=== PATIENT | female | born 1950 | race Caucasian/White ===

== ENCOUNTER 2018-02-22 14:33 | Outpatient (CLI) | payer MEDICARE, BC | END 2018-02-22 14:34 | disposition home or self-care (01) | LOC: BICMAMMO 14:33 | PROVIDERS: ATTEND Family Medicine | DX: Z12.31 Encounter for screening mammogram for malignant neoplasm of breast (principal); R92.1 Mammographic calcification found on diagnostic imaging of breast | CPT/HCPCS: 77063; 77067 ==

== ENCOUNTER 2018-08-23 15:20 | Outpatient (CLI) | payer MEDICARE, BC ==
--- NOTE | 2018-08-23 15:58 | ULT ---
US Renal Bilateral STANDARD: 08/23/2018 12:00 AM CLINICAL HISTORY: Abnormality seen in the left kidney on prior examination in 2016.. STUDY: Renal ultrasound COMPARISON: MRI of the abdomen 06/16/2015 FINDINGS: Right kidney: Echogenicity: Normal. Masses/cysts: None. Hydronephrosis: None. Calcifications: None. Length: 10.0 cm Left kidney: Echogenicity: Normal. Masses/cysts: 2.4 cm cyst Hydronephrosis: None. Calcifications: None. Length: 11.3 cm Limited visualization of the urinary bladder is unremarkable. The bladder is predominantly decompress ed. IMPRESSION: Left renal cyst
== END 2018-08-23 15:21 | disposition home or self-care (01) ==
LOC: BICULT 15:20
PROVIDERS: ATTEND Family Medicine
DX: N28.89 Other specified disorders of kidney and ureter (principal); N28.1 Cyst of kidney, acquired
CPT/HCPCS: 76770

== ENCOUNTER 2019-03-05 15:09 | Outpatient (CLI) | payer MEDICARE, BC ==
--- NOTE | 2019-03-05 15:45 | MMO ---
Bilateral MAMMO Bilat Screen [facility]. CLINICAL HISTORY: Patient is 68 years old and is seen for screening. The patient has no family history of breast cancer. The patient has no personal history of cancer. VIEWS: The views performed were: bilateral craniocaudal with tomosynthesis and bilateral mediolateral oblique with tomosynthesis. FILMS COMPARED: The present examination has been compared to prior imaging studies performed at [facility] on 01/13/2016, 02/21/2017 and 02/22/2018, and at [facility] on 08/20/2012. This study has been interpreted with the assistance of computer-aided detection. MAMMOGRAM FINDINGS: There are scattered fibroglandular densities. There are stable benign appearing calcifications seen in both breasts. There are no suspicious masses, suspicious calcifications, or new areas of architectural distortion. IMPRESSION: THERE IS NO MAMMOGRAPHIC EVIDENCE OF MALIGNANCY. A ROUTINE FOLLOW-UP MAMMOGRAM IN 1 YEAR IS RECOMMENDED. THE RESULTS OF THIS EXAM WERE SENT TO THE PATIENT. ACR BI-RADS Category 2 - Benign finding MAMMOGRAPHY NOTE: 1. A negative mammogram report should not delay a biopsy if a dominant of clinically suspicious mass is present. 2. Approximately 10% to 15% of breast cancers are not detected by mammography. 3. Adenosis and dense breasts may obscure an underlying neoplasm. Reported by: DA UREÑA MD Electonically Signed: [id number]
== END 2019-03-05 15:10 | disposition home or self-care (01) ==
LOC: BICMAMMO 15:09
PROVIDERS: ATTEND Family Medicine
DX: Z12.31 Encounter for screening mammogram for malignant neoplasm of breast (principal)
CPT/HCPCS: 77063; 77067

== ENCOUNTER 2020-03-25 13:42 | Outpatient (CLI) | payer MEDICARE, BC ==
--- NOTE | 2020-03-25 15:00 | MMO ---
Bilateral MAMMO Bilat Screen [facility]. CLINICAL HISTORY: Patient is 69 years old and is seen for screening. The patient has no family history of breast cancer. The patient has no personal history of cancer. VIEWS: The views performed were: bilateral craniocaudal with tomosynthesis and bilateral mediolateral oblique with tomosynthesis. FILMS COMPARED: The present examination has been compared to prior imaging studies performed at [facility] on 01/13/2016, 02/21/2017, 02/22/2018 and 03/05/2019. This study has been interpreted with the assistance of computer-aided detection. MAMMOGRAM FINDINGS: There are scattered fibroglandular densities. Benign calcifications are noted bilaterally. There are no suspicious masses, suspicious calcifications, or new areas of architectural distortion. IMPRESSION: THERE IS NO MAMMOGRAPHIC EVIDENCE OF MALIGNANCY. A ROUTINE FOLLOW-UP MAMMOGRAM IN 1 YEAR IS RECOMMENDED. THE RESULTS OF THIS EXAM WERE SENT TO THE PATIENT. ACR BI-RADS Category 2 - Benign finding MAMMOGRAPHY NOTE: 1. A negative mammogram report should not delay a biopsy if a dominant of clinically suspicious mass is present. 2. Approximately 10% to 15% of breast cancers are not detected by mammography. 3. Adenosis and dense breasts may obscure an underlying neoplasm. Reported by: SUSAN LION MD Electonically Signed: [id number]
== END 2020-03-25 13:43 | disposition home or self-care (01) ==
LOC: BICMAMMO 13:42
PROVIDERS: ATTEND Family Medicine
DX: Z12.31 Encounter for screening mammogram for malignant neoplasm of breast (principal)
CPT/HCPCS: 77063; 77067

== ENCOUNTER 2020-07-08 15:48 | Outpatient (CLI) | payer MEDICARE, BC ==
--- NOTE | 2020-07-08 16:43 | RAD ---
EXAM: 6 views of the lumbosacral spine HISTORY: Low back pain for years COMPARISON: None FINDINGS: 6 views of the lumbosacral spine shows slight compression deformity of the L1 vertebral bod y with approximately 10% height loss. This is likely chronic. There is normal alignment of the vertebral bodies and intervertebral discs without subluxation. Moderate degenerative changes are seen throughout the lumbar spine with anterior osteophytes in the upper lumbar spine and posterior facet arthrosis in the lower lumbosacral spine. Alignment is unchanged with flexion and extension. The sacroiliac joints are unremarkable. IMPRESSION: Degenerative changes of the lumbar spine as above with unchanged alignment with bending
--- NOTE | 2020-07-08 16:44 | RAD ---
EXAM: 3 views of the thoracic spine HISTORY: Thoracic spine pain for years COMPARISON: None FINDINGS: 3 views of the thoracic spine shows normal height and alignment of the vertebral bodies and intervertebral discs without fracture or subluxation. No significant degenerative changes are seen. IMPRESSION: No significant thoracic spine abnormality.
== END 2020-07-08 15:49 | disposition home or self-care (01) ==
LOC: BICRAD 15:48
PROVIDERS: ATTEND Family Medicine
DX: M54.5 Low back pain (principal); M54.6 Pain in thoracic spine; M47.816 Spondylosis without myelopathy or radiculopathy, lumbar region
CPT/HCPCS: 72072; 72100

== ENCOUNTER 2021-03-29 12:21 | Outpatient (CLI) | payer MEDICARE, BC | END 2021-03-29 12:22 | disposition home or self-care (01) | LOC: BICMAMMO 12:21 | PROVIDERS: ATTEND Family Medicine | DX: Z12.31 Encounter for screening mammogram for malignant neoplasm of breast (principal) | CPT/HCPCS: 77063; 77067 ==

== ENCOUNTER 2021-04-30 12:17 | Outpatient (CLI) | payer MEDICARE, BC | END 2021-04-30 12:18 | disposition home or self-care (01) | LOC: TBSIIMAG 12:17 | PROVIDERS: ATTEND Family Medicine | DX: M48.061 Spinal stenosis, lumbar region without neurogenic claudication (principal); M51.9 Unspecified thoracic, thoracolumbar and lumbosacral intervertebral disc disorder; M25.552 Pain in left hip; M47.816 Spondylosis without myelopathy or radiculopathy, lumbar region; M16.12 Unilateral primary osteoarthritis, left hip; M51.36 Other intervertebral disc degeneration, lumbar region; M47.817 Spondylosis without myelopathy or radiculopathy, lumbosacral region | CPT/HCPCS: 72148 ==

== ENCOUNTER 2022-09-27 14:18 | Outpatient (CLI) | payer MEDICARE, BC | END 2022-09-27 14:19 | disposition home or self-care (01) | LOC: BICMAMMO 14:18 | PROVIDERS: ATTEND Family Medicine | DX: Z12.31 Encounter for screening mammogram for malignant neoplasm of breast (principal); Z13.820 Encounter for screening for osteoporosis; M85.89 Other specified disorders of bone density and structure, multiple sites; Z78.0 Asymptomatic menopausal state | CPT/HCPCS: 77063; 77067; 77080 ==

== ENCOUNTER 2023-04-11 13:40 | Outpatient (CLI) | payer MEDICARE, BC | END 2023-04-11 13:41 | disposition home or self-care (01) | LOC: RAD 13:40 | PROVIDERS: ATTEND Family Medicine | DX: M25.561 Pain in right knee (principal) ==

== ENCOUNTER 2024-05-21 15:12 | Outpatient (CLI) | payer MEDICARE, BC | END 2024-05-21 15:13 | disposition home or self-care (01) | LOC: BICRAD 15:12 | PROVIDERS: ATTEND Nurse Practitioner Family | DX: Z09 Encounter for follow-up examination after completed treatment for conditions other than malignant neoplasm (principal); S62.101S Fracture of unspecified carpal bone, right wrist, sequela; S52.501D Unspecified fracture of the lower end of right radius, subsequent encounter for closed fracture with routine healing; I50.43 Acute on chronic combined systolic (congestive) and diastolic (congestive) heart failure ==